=== PATIENT | male | born 1930 | race Hispanic/Latino ===

== ENCOUNTER 2017-09-02 10:45 | Outpatient (CLI) | payer MEDICARE ==
--- NOTE | 2017-09-02 12:03 | XRay Report ---
XRAY RIGHT KNEE 4 THREE VIEWS: 09/02/17 CLINICAL: Osteoarthritis right knee. 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 No apparent loosening. No fracture or dislocation. No joint effusion.Nonspecific anterior subcutaneous soft tissue edema. No soft tissue air. Vascular calcifications. IMPRESSION: Status post totally replacement with nonspecific anterior soft tissue edema.
== END 2017-09-02 10:46 | disposition home or self-care (01) ==
LOC: SPVIMAG 10:45
PROVIDERS: ATTEND Orthopaedic Surgery Sports Medicine
DX: M85.861 Other specified disorders of bone density and structure, right lower leg (principal); Z96.651 Presence of right artificial knee joint

== ENCOUNTER 2020-08-06 07:37 | Emergency (ER) | payer MEDICARE ==
--- NOTE | 2020-08-06 09:31 | Emergency Department Report ---
ED Male HPI - General Chief complaint: Urogenital-Male Stated complaint: BLADDER PROBLEM Time Seen by Provider: 08/06/20 09:21 Source: patient Mode of arrival: Ambulatory Limitations: No Limitations - History of Present Illness Initial comments: The patient was evaluated in the emergency department for symptoms described in the history of present illness. He/she was evaluated in the context of the global COVID-19 pandemic, which necessitated consideration that the patient might be at risk for infection with the virus that causes COVID-19. Insti tutional protocols and algorithms that pertain to the evaluation of patients at risk for COVID-19 are in a state of rapid change based on information released by regulatory bodies including the CDC and federal and state organizations. These policies and algorithms were followed during the patient's care in the emergency department. Please note that these policies, procedures and recommendations changed on a rapid basis. 89-year-old male presents to the emergency room reporting he is unable to void since 2 AM. Patient states that he was having some pelvic distention and tightness and was not able to void. Patient reports to me that he has a history of enlarged prostate. Patient states he has been followed by urologist but not has had any problems in several years. Patient states now he has pain and unable to void. -: During the night Time: 02:00 Severity scale (0 -10): 8 Quality: aching, sharp Consistency: constant Improves with: none Worsens with: urination urinary retention. denies: discharge, swelling, fever, nausea/vomiting - Related Data Previous Rx's Medication Instructions Recorded Last Taken Type Nitrofurantoin [place]/M-Cryst 100 mg PO Q12HR 7 Days #14 capsule 08/06/20 Unknown Rx [Macrobid CAP] Allergies Allergy/AdvReac Type Severity Reaction Status Date / Time No Known Allergies Allergy Unverified 08/06/20 07:44 ED Review of Systems ROS: Stated complaint: BLADDER PROBLEM Other details as noted in HPI Comment: All other systems reviewed and negative ED Past Medical Hx - Past Medical History Previous Medical History?: Yes Hx COPD: Yes Additional medical history: Back problems, Enlarged prostate, Sinus problems, Lung collapsed - Surgical History Past Surgical History?: Yes Additional Surgical History: Back, Sinus surgery - Social History Smoking Status: Never Smoker Substance Use Type: Prescribed - Medications Home Medications: Home Medications Medication Instructions Recorded Confirmed Last Taken Type Nitrofurantoin [place]/M-Cryst 100 mg PO Q12HR 7 Days #14 capsule 08/06/20 Unknown Rx [Macrobid CAP] ED Physical Exam - General Limitations: No Limitations General appearance: alert, in no apparent distress - Head Head exam: Present: atraumatic, normocephalic - Eye Eye exam: Present: normal appearance - ENT ENT exam: Present: mucous membranes moist - Respiratory Respiratory exam: Absent: accessory muscle use - Cardiovascular Cardiovascular Exam: Present: regular rate, normal rhythm. Absent: systolic murmur, diastolic murmur, rubs, gallop - GI/Abdominal GI/Abdominal exam: Present: soft, distended, tenderness, normal bowel sounds. Absent: guarding, rebound - Extremities Exam Extremities exam: Present: normal inspection, full ROM - Back Exam Back exam: Present: normal inspection - Neurological Exam Neurological exam: Present: alert, oriented X3, normal gait - Psychiatric Psychiatric exam: Present: normal affect, normal mood - Skin Skin exam: Present: warm, dry, intact, normal color. Absent: rash ED Course Vital Signs 08/06/20 08/06/20 07:44 09:09 Temperature 97.8 F Pulse Rate 82 Respiratory 18 18 Rate Blood Pressure 142/80 O2 Sat by Pulse 97 99 Oximetry ED Medical Decision Making - Lab Data Result diagrams: 08/06/20 09:45 08/06/20 09:45 - Medical Decision Making 89-year-old male presents to the emergency room reporting he is unable to void since 2 AM. Patient states that he was having some pelvic distention and tightness and was not able to void. Patient reports to me that he has a history of enlarged prostate. Patient states he has been followed by urologist but not has had any problems in several years. Patient states now he has pain and unable to void. CBC CMP urinalysis and Gilliam catheter has been ordered. Nurse reports she had over 400 cc of urine returned. Urinalysis is pending. Lab reports that urinalysis machine is down. Patient will be covered prophylactically with Macrobid 100 mg p.o. twice daily for 7 days and urine culture has been ordered and sent. Patient be discharged home with a Gilliam placed and a referral to a urologist. Critical care attestation.: If time is entered above; I have spent that time in minutes in the direct care of this critically ill patient, excluding procedure time. ED Disposition Clinical Impression: Urinary retention due to benign prostatic hyperplasia Disposition: DC-01 TO HOME OR SELFCARE Is pt being admited?: No Does the pt Need Aspirin: No Condition: Stable Instructions: Benign Prostatic Hyperplasia, Acute Urinary Retention, Male, [id number] Additional Instructions: Please complete medication as prescribed. Is very important for you to follow- up with a urologist in the next few days. Return back to the emergency room immediately if you start to have a fever chills sweats or not having urine flow. Prescriptions: Nitrofurantoin [place]/M-Cryst [Macrobid CAP] 100 mg PO Q12HR 7 Days #14 capsule Referrals: JAVIER BE JR., MD [Primary Care Provider] - 3-5 Days IKE PEÑALOZA MD [Staff Physician] - 3-5 Days
[2020-08-06 10:12] LABS: Hematocrit 36.9 % (35.5-45.6); Hemoglobin 12.4 gm/dl (11.8-15.2); Mean Corpuscular HGB Conc 34 % (32-34); Mean Corpuscular Volume 85 fl (84-94); Platelet Count 141 K/mm3 (140-440); Red Blood Count 4.37 M/mm3 (3.65-5.03); Red Cell Distribution Width 16.7 % (13.2-15.2)
[2020-08-06 10:20] LABS: Alanine Aminotransferase 12 units/L (7-56); Albumin 3.2 g/dL (3.9-5); BUN/Creatinine Ratio 18; Blood Urea Nitrogen 16 mg/dL (9-20); Calcium 8.4 mg/dL (8.4-10.2); Hemolysis Index 6
[2020-08-06 11:22] LABS: Basophils % (Manual) 0 % (0.0-1.8); Eosinophils % (Manual) 0 % (0.0-4.3); Total Cells Counted 100
[2020-08-06 11:23] LABS: Platelet Estimate Consistent w Auto; Schistocytes Rare; Tear Drop Cells Few
[2020-08-06 11:24] LABS: Large Platelets Few
[2020-08-06 14:27] VITALS: BP 128/80
[2020-08-06 15:27] LABS: Bacteria,Urine 1+ /HPF (Negative); Mucus,Urine FEW /HPF
[2020-08-06 15:32] LABS: Bilirubin,Urine Negative (Negative); Blood,Urine Moderate (Negative); Color,Urine Yellow (Yellow); Protein,Urine <30 mg dL mg/dL (Negative); Urobilinogen,Urine < 0.2 mg/dL (<2.0)
== END 2020-08-06 14:28 | disposition home or self-care (01) ==
LOC: ED 07:37
DX: R33.9 Retention of urine, unspecified (principal); J44.9 Chronic obstructive pulmonary disease, unspecified; Z79.899 Other long term (current) drug therapy; Z98.890 Other specified postprocedural states
CPT/HCPCS: 36415; 51702; 80053; 81001; 85007; 85025; 87086